=== PATIENT | male | born 1955 | race Caucasian/White ===

== ENCOUNTER 2019-09-23 08:12 | Observation (INO) ==
[2019-09-23 08:55] LABS: Hematocrit 43 % (42-52); Hemoglobin 14.4 g/dL (14.0-18.0); Mean Corpuscular HGB Conc 33 g/dL (31-36); Mean Corpuscular Hemoglobin 30 pg (27-31); Mean Corpuscular Volume 91 fL (80-94); Mean Platelet Volume 8.9 fL (7.4-10.4); Platelet Count 161 10^3/uL (150-450); Red Blood Count 4.74 10^6 /uL (4.18-5.48); Red Cell Distribution Width 15 % (10-15); White Blood Count 168.5 10^3/uL (3.5-10.8)
[2019-09-23 09:15] LABS: ALT 30 U/L (7-52); AST 35 U/L (13-39); Albumin 4.9 g/dL (3.2-5.2); Albumin/Globulin Ratio 2.1 (1-3); Alkaline Phosphatase 101 U/L (34-104); Blood Urea Nitrogen 16 mg/dL (6-24); CO2 Carbon Dioxide 21 mmol/L (22-32); Calcium 9.6 mg/dL (8.6-10.3); Chloride 105 mmol/L (101-111); EGFR African American 46.5 (>60); EGFR Non-African American 38.4 (>60); Globulin 2.3 g/dL (2-4); Glucose 99 mg/dL (70-100); Magnesium 2.1 mg/dL (1.9-2.7); Sodium 134 mmol/L (135-145); Total Protein 7.2 g/dL (6.4-8.9)
[2019-09-23 09:20] LABS: Anion Gap 8 mmol/L (2-11)
[2019-09-23] MEDS ORDERED: Insulin REGULAR 100 unit/ml(*) IV PUSH ONE (09:27)
[2019-09-23] MEDS ORDERED: Dextrose 50% Syringe 50 ml 25 GM/50 ML SYRINGE IV PUSH ONE ×2 (09:28)
[2019-09-23] MEDS ORDERED: Albuterol 2.5mg/3 ml (0.083%) NEB.SOLN INH ONE (09:32)
[2019-09-23 09:46] LABS: Acetaminophen < 15 mcg/mL; Alcohol, S < 10 mg/dL (<10)
[2019-09-23 10:02] LABS: ABS Basophils 0.1 10^3/ul (0-0.2); ABS Eosinophils 0.2 10^3/ul (0-0.6); ABS Lymphocytes 161.3 10^3/ul (1.0-4.8); ABS Monocytes 1.8 10^3/ul (0-0.8); ABS Nucleated RBC 1.1 10^3/ul; Eosinophil % 0.1 %; Lymphocyte % 95.8 %; Nucleated Red Blood Cells % 0.6
[2019-09-23 10:50] LABS: Phosphorus 2.3 mg/dL (2.5-5.0); Uric Acid 7.7 mg/dL (4.4-7.6)
[2019-09-23 11:09] LABS: LDH 187 U/L (140-271)
[2019-09-23 11:25] LABS: Urine Appearance Clear; Urine Bilirubin Negative (Negative); Urine Blood Negative (Negative); Urine Color Yellow; Urine Glucose Negative (Negative); Urine Ketones Negative (Negative); Urine Nitrite Negative (Negative); Urine Protein Negative (Negative); Urine Specific Gravity 1.006 (1.010-1.030); Urine Urobilinogen Negative (Negative)
[2019-09-23 11:46] LABS: Urine Benzodiazepine Screen None Detected (None Detect); Urine Opiates Screen None Detected (None Detect)
[2019-09-23] MEDS: Enoxaparin 40 MG/0.4 ML SYR(*) SUBCUT SCH (16:39)
[2019-09-23 16:48] LABS: BUN/Creatinine Ratio 8.9 (8-20); Calcium 9.5 mg/dL (8.6-10.3); EGFR African American 53.8 (>60); EGFR Non-African American 44.4 (>60)
[2019-09-23 16:56] LABS: Potassium 5.4 mmol/L (3.5-5.0)
[2019-09-23 17:24] LABS: Potassium, Whole Blood 3.6 mmol/L (3.4-4.5)
[2019-09-23] MEDS ORDERED: Doxepin 25 mg CAP (NF) PO SCH (21:00)
[2019-09-23] MEDS ORDERED: clonazePAM 1 mg TAB(*) PO SCH (23:00)
[2019-09-24 07:13] LABS: Hematocrit 39 % (42-52); Hemoglobin 13.3 g/dL (14.0-18.0); Mean Corpuscular HGB Conc 34 g/dL (31-36); Mean Corpuscular Hemoglobin 31 pg (27-31); Mean Corpuscular Volume 90 fL (80-94); Mean Platelet Volume 8.9 fL (7.4-10.4); Platelet Count 148 10^3/uL (150-450); Potassium, Whole Blood 6.2 mmol/L (3.4-4.5); Red Blood Count 4.32 10^6 /uL (4.18-5.48); Red Cell Distribution Width 14 % (10-15)
[2019-09-24 07:33] LABS: BUN/Creatinine Ratio 10.3 (8-20); Calcium 8.9 mg/dL (8.6-10.3); EGFR African American 58.5 (>60); EGFR Non-African American 48.3 (>60)
[2019-09-24 07:37] LABS: Potassium 5.7 mmol/L (3.5-5.0)
[2019-09-24 08:07] LABS: ABS Basophils 0.2 10^3/ul (0-0.2); ABS Eosinophils 0.1 10^3/ul (0-0.6); ABS Lymphocytes 146.9 10^3/ul (1.0-4.8); ABS Monocytes 2.5 10^3/ul (0-0.8); ABS Nucleated RBC 0.5 10^3/ul; Eosinophil % 0.1 %; Lymphocyte % 94.8 %; Nucleated Red Blood Cells % 0.3
[2019-09-24] MEDS ORDERED: DOXEPIN 150 MG PO SCH (09:00)
[2019-09-24] MEDS: LORazepam 0.5 mg TAB (*) PO PRN ×2 (10:13→18:03)
[2019-09-24] MEDS: Enoxaparin 40 MG/0.4 ML SYR(*) SUBCUT SCH (15:16)
[2019-09-24 16:35] VITALS: BP 136/89
== END 2019-09-24 19:35 | disposition home or self-care (01) ==
LOC: MEDTELE 08:12 → ED 08:12 → MEDTELE 14:07
PROVIDERS: ADMIT Internal Medicine; ATTEND Internal Medicine